=== PATIENT | male | born 1950 | race Caucasian/White ===

== ENCOUNTER 2016-12-20 05:26 | Emergency (ER) | payer OTHER, BC ==
[2016-12-20 05:36] VITALS: BP 164/96; PULSE 70; TEMP 97.5; BMI 31.1
--- NOTE | 2016-12-20 05:46 | PDOC ---
History of Present Illness - General Chief Complaint: Muscle Cramping Stated Complaint: CRAMPING/DIARRHEA Time Seen by Provider: 12/20/16 05:39 History Source: Patient Exam Limitations: No Limitations - History of Present Illness Initial Comments: 12/20/16 05:46 This is a 66-year-old male who comes in complaining of muscle cramps. Patient said that he was exercising yesterday exerting himself and has was sweating a lot patient said that he drank a lot of water to rehydrate himself but did not take any thing with electrolytes and the patient then said overnight he developed muscle cramps and pain in his muscles. Patient comes in this morning complaining of muscle cramps and pain. Patient denies any fever or chills. Patient denies any dark or tea-colored urine. Patient is otherwise healthy. PAST MEDICAL HISTORY: no significant history PAST SURGICAL HISTORY: no significant history FAMILY HISTORY: no pertinant history SOCIAL HISTORY: Pt lives with family and is employed. MEDICATIONS: reviewed ALLERGIES: As per nursing notes Review of Systems General: No fevers or chills, no weakness, no weight loss HEENT: No change in vision. No sore throat,. No ear pain CardioVascular: No chest pain or shortness of breath Respiratory:No cough, or wheezing. Gastrointestinal: no nausea, vomitting, diarrhea or constipation, No rectal bleeding Genitourinary: No dysuria, hematuria, or frequency Musculoskeletal: + muscle cramps Neurologic: No headache, vertigo, dizziness or loss of consciousness Psychiatric: nor depression Skin: No rashes or easy bruising Endocrine: no increased thirst or abnormal weight change Allergic: no skin or latex allergy All other systems reviewed and normal GENERAL: The patient is awake, alert, and fully oriented, in no acute distress. HEAD: Normal with no signs of trauma. EYES: Pupils equal, round and reactive to light, extraocular movements intact, sclera anicteric, conjunctiva clear. EXTREMITIES: Normal range of motion, no edema. There is no tenderness, redness, swelling or rash of the muscles or extremities NEUROLOGICAL: Normal speech, normal gait. PSYCH: Normal mood, normal affect. SKIN: Warm, Dry, normal turgor, no rashes or lesions noted. 12/20/16 06:59 Assessment and plan: This is a 66-year-old male who comes in complaining of muscle cramps of his extremities most likely secondary to exertion and dehydration. Patient is being hydrated with IV fluids with improvement of his symptoms. Patient's blood work is still pending at this time. Care of patient transferred to Dr. Estes. My transfer care note 12/20/16 07:00 Past History - Past Medical History Allergies/Adverse Reactions: Allergies Allergy/AdvReac Type Severity Reaction Status Date / Time ammonia Allergy Mild Verified 08/19/16 08:24 codeine Allergy Mild Verified 08/19/16 08:23 Home Medications: Ambulatory Orders Aspirin 81 mg PO DAILY 01/08/13 Sertraline HCl [Zoloft] 50 mg PO HS 01/08/13 Albuterol Sulfate [Proventil HFA Inhaler -] 1 - 2 inh PO PRN PRN 08/19/16 Multivitamin with Iron [Daily Chidi with Iron] 1 each PO DAILY 08/19/16 Ranitidine HCl [Zantac] 150 mg PO PRN PRN 08/19/16 Anemia: No Asthma: Yes (CHEMICAL INDUCED ASTHMA) Cancer: No Cardiac Disorders: No CVA: No COPD: No CHF: No Dementia: No Diabetes: No GI Disorders: Yes (GERD,DIVERTICULOSIS,IRRITABLE BOWEL) Disorders: No HTN: No Hypercholesterolemia: No Liver Disease: No Psychiatric Problems: Yes Seizures: No Thyroid Disease: No - Surgical History Abdominal Surgery: No Appendectomy: No Cardiac Surgery: No Cholecystectomy: No Lung Surgery: No Neurologic Surgery: No Orthopedic Surgery: Yes (ARTHROSCOPY BILATERAL KNEE-2013,2015,LEFT SHOULDER SURGERY) - Immunization History Td Vaccination: Yes Immunization Up to Date: Yes - Psycho/Social/Smoking Cessation Hx Anxiety: Yes Suicidal Ideation: No Smoking Status: No Smoking History: Former smoker Years of Tobacco Use: 0 Have you smoked in the past 12 months: No Number of Cigarettes Smoked Daily: 0 If you are a former smoker, when did you quit?: 40 YEARS AGO Information on smoking cessation initiated: No Hx Alcohol Use: No Drug/Substance Use Hx: No Substance Use Type: None Hx Substance Use Treatment: No *Physical Exam - Vital Signs Last Vital Signs Temp Pulse Resp BP Pulse Ox 97.5 F L 70 18 164/96 100 12/20/16 05:34 12/20/16 05:34 12/20/16 05:34 12/20/16 05:34 12/20/16 05:34 ED Treatment Course - LABORATORY CBC & Chemistry Diagram: 12/20/16 05:45 12/20/16 05:45 *DC/Admit/Observation/Transfer Diagnosis at time of Disposition: Muscle cramping - Discharge Dispostion Disposition: HOME Condition at time of disposition: Stable Admit: No - Referrals Referrals: Marino Kebede MD [Primary Care Provider] - - Patient Instructions Additional Instructions: Return to the emergency department immediately with ANY new, persistent or worsening symptoms. Continue any medications as previously prescribed by your physician. You should follow up with your primary doctor as soon as possible regarding today's emergency department visit. . Please make sure your doctor reviews the results of your emergency evaluation. Thank you for coming to the Emergency Department today for your care. It was a pleasure to see you today. Please note that your evaluation is INCOMPLETE until you follow-up with your doctor. Make sure you stay well-hydrated if you get dehydrated rehydrate herself with Gatorade, Powerade or Pedialyte
[2016-12-20] MEDS ORDERED: SODIUM CHLORIDE 1,000 ML IV ONE (05:59)
[2016-12-20 06:31] LABS: BASOPHIL 0.8 % (0-2.0); EOSINOPHIL 3.1 % (0-4.5); MCH 30.4 pg (25.7-33.7); MCHC 34.6 g/dl (32.0-35.9); NEUTROPHILS 65.7 % (42.8-82.8); PLATELET COUNT 281 K/MM3 (134-434); RDW 13.5 % (11.9-15.9); WHITE BLOOD COUNT 8.8 K/mm3 (4.0-10.0)
[2016-12-20 06:50] LABS: MAGNESIUM 1.9 mg/dL (1.8-2.4); PHOSPHOROUS 2.9 mg/dL (2.5-4.9)
[2016-12-20 06:52] LABS: ALBUMIN 3.7 g/dl (3.4-5.0); ANION GAP 9 (8-16); BILIRUBIN,TOTAL 0.4 mg/dL (0.2-1.0); CALCIUM 8.8 mg/dL (8.5-10.1); CO2 28 mmol/L (21-32); GLUCOSE,RANDOM 99 mg/dL (74-106); SGOT/AST 21 U/L (15-37); SGPT/ALT 30 U/L (12-78); TOT PROT 6.9 g/dl (6.4-8.2)
[2016-12-20 06:55] LABS: ALK PHOS 81 U/L (45-117); TROPONIN I < 0.02 ng/ml (0.00-0.05)
== END 2016-12-20 07:14 | disposition home or self-care (01) ==
LOC: FER 05:26
PROC: 3E0337Z Introduction of Electrolytic and Water Balance Substance into Peripheral Vein, Percutaneous Approach (ICD-10-PCS; principal; 2016-12-20)
DX: R25.2 Cramp and spasm (principal); Z87.891 Personal history of nicotine dependence; K21.9 Gastro-esophageal reflux disease without esophagitis; J45.909 Unspecified asthma, uncomplicated
CPT/HCPCS: 36415; 80053; 82550; 82553; 83735; 84100; 84484; 85025; 99283-25

== ENCOUNTER 2017-04-04 15:33 | Inpatient (IN) | payer OTHER, BC ==
[2017-04-04] MEDS ORDERED: NITROGLYCERIN SUBLINGUAL 1/150 0.4 MG TAB SL ONE (16:11)
[2017-04-04] MEDS ORDERED: PANTOPRAZOLE SODIUM 40 MG in SODIUM CHLORIDE 100 ML IVPB ONE (16:12)
--- NOTE | 2017-04-04 16:12 | PDOC ---
History of Present Illness - General History Source: Patient Exam Limitations: No Limitations - History of Present Illness Initial Comments: 04/04/17 17:02 The patient is a 66 year old male, with a significant past medical history of chemical induced asthma, GERD, diverticulosis, and irritable bowel syndrome, who presents to the emergency department with complains of abdominal pain, diarrhea, acid reflux, and headache. The patient reports that about a month ago he went to his urologist because of frequent urination throughout the night. He was given Rapaflo and then developed stomach pain and dysuria. He then tested positive for a UTI and had a cystoscopy and then developed an infection and was prescribed bactrim. The patient states that he was then told he had an E. coli infection and was given another medication which caused him to have diarrhea, wheezing, and palpitations. He reports that for the past 3 days his stomach has been killing him, he reports that his abdominal pain is a 8/10 in severity and describes it as a tightness in his epigastric region along with pressure in his chest cavity. He states he is also experiencing pain in his back that radiates up to his neck and painful acid reflux. The patient states that yesterday he had 5 episodes of diarrhea and today had 3 episodes. He denies any blood present in the stool. He denies chest pain, shortness of breath, and dizziness. He denies fever, chills, nausea, vomit, and constipation. He denies dysuria, frequency, urgency and hematuria. Allergies: ammonia, codeine Past surgical history: Bilateral Knee arthroscopy (2013), Left shoulder surgery (2016) Social history: Former smoker (quit 40 years ago) Family History: Mother of cancer and had diabetes, Father had bypass surgery twice PCP: Dr. Fang Kebede Urologist: Dr. Vitale <Jo Ann Sierra - Last Filed: 04/04/17 18:24> <Glen Olson - Last Filed: 04/04/17 19:01> - General Chief Complaint: Pain Stated Complaint: ACID REFLUX Time Seen by Provider: 04/04/17 15:37 Past History <Jo Ann Sierra - Last Filed: 04/04/17 18:24> - Past Medical History Anemia: No Asthma: Yes (CHEMICAL INDUCED ASTHMA) Cancer: No Cardiac Disorders: No CVA: No COPD: No CHF: No Dementia: No Diabetes: No GI Disorders: Yes (GERD,DIVERTICULOSIS,IRRITABLE BOWEL, HIATAL HERNIA) Disorders: Yes (H/O UTI) HTN: No Hypercholesterolemia: No Liver Disease: No Psychiatric Problems: Yes Seizures: No Thyroid Disease: No - Surgical History Abdominal Surgery: No Appendectomy: No Cardiac Surgery: No Cholecystectomy: No Lung Surgery: No Neurologic Surgery: No Orthopedic Surgery: Yes (ARTHROSCOPY BILATERAL KNEE-2013,2016,LEFT SHOULDER SURGERY) - Immunization History Td Vaccination: Yes Immunization Up to Date: Yes - Psycho/Social/Smoking Cessation Hx Anxiety: No Suicidal Ideation: No Smoking Status: No Smoking History: Former smoker Years of Tobacco Use: 0 Have you smoked in the past 12 months: No Number of Cigarettes Smoked Daily: 0 If you are a former smoker, when did you quit?: 40 YEARS AGO Information on smoking cessation initiated: No Hx Alcohol Use: No Drug/Substance Use Hx: No Substance Use Type: None Hx Substance Use Treatment: No <Glen Olson - Last Filed: 04/04/17 19:01> - Past Medical History Allergies/Adverse Reactions: Allergies Allergy/AdvReac Type Severity Reaction Status Date / Time ammonia Allergy Mild Verified 04/04/17 15:42 codeine Allergy Mild Verified 04/04/17 15:42 Home Medications: Ambulatory Orders Aspirin 81 mg PO DAILY 01/08/13 Glucosa Farrell 2Kcl/Chondroitin Farrell [Glucosamine & Chondroitin Cap] 1 each PO DAILY 04/04/17 Pantoprazole Sodium [Protonix -] 20 mg PO DAILY 04/04/17 Review of Systems - Review of Systems Able to Perform ROS?: Yes Comments:: 04/04/17 17:03 CONSTITUTIONAL: Absent: fever, chills, diaphoresis, generalized weakness, malaise, loss of appetite HEENT: Absent: rhinorrhea, nasal congestion, throat pain, throat swelling, difficulty swallowing, mouth swelling, ear pain, eye pain, visual Changes CARDIOVASCULAR: Absent: chest pain, syncope, palpitations, irregular heart rate, lightheadedness , peripheral edema RESPIRATORY: Absent: cough, shortness of breath, dyspnea with exertion, orthopnea, wheezing, stridor, hemoptysis GASTROINTESTINAL: +Abdominal pain, +Diarrhea, +Acid Reflux Absent: abdominal distension, nausea, vomiting, constipation, melena, hematochezia GENITOURINARY: Absent: dysuria, frequency, urgency, hesitancy, hematuria, flank pain, genital pain MUSCULOSKELETAL: +Back pain Absent: joint swelling SKIN: Absent: rash, itching, pallor HEMATOLOGIC/IMMUNOLOGIC: Absent: easy bleeding, easy bruising, lymphadenopathy, frequent infections ENDOCRINE: Absent: unexplained weight gain, unexplained weight loss, heat intolerance, cold intolerance NEUROLOGIC: +Headache Absent: focal weakness or paresthesias, dizziness, unsteady gait, seizure, mental status changes, bladder or bowel incontinence PSYCHIATRIC: Absent: anxiety, depression, suicidal or homicidal ideation, hallucinations. <Jo Ann Sierra - Last Filed: 04/04/17 18:24> *Physical Exam - Vital Signs Last Vital Signs Temp Pulse Resp BP Pulse Ox 98.4 F 92 H 18 159/98 97 04/04/17 15:33 04/04/17 15:33 04/04/17 15:33 04/04/17 15:33 04/04/17 15:33 - Physical Exam Comments: 04/04/17 17:03 GENERAL:+Somewhat obese male, cooperative Well developed, well nourished. Awake and alert. No acute distress. HEENT: Normocephalic, atraumatic. PERRLA, EOMI. No conjunctival pallor. Sclera are non- icteric. Moist mucous membranes. Oropharynx is clear. NECK: Supple. Full ROM. No JVD. Carotid pulses 2+ and symmetric, without bruits. No thyromegaly. No lymphadenopathy. CARDIOVASCULAR: S1 and S2 are distant but normal. Regular rate of 80 beats per minute Regular rate and rhythm. No murmurs, rubs, or gallops. Distal pulses are 2+ and symmetric. PULMONARY: No evidence of respiratory distress. Lungs clear to auscultation bilaterally. No wheezing, rales or rhonchi. ABDOMINAL: +Diffuse tenderness to palpation in the upper and lower quadrants, but most noticeably in the right upper quadrant with a positive [place] sign. Non-distended. No rebound or guarding. No organomegaly. Normoactive bowel sounds. MUSCULOSKELETAL Normal range of motion at all joints. No bony deformities or tenderness. No CVA tenderness. : No masses or tenderness, no urethral discharge. EXTREMITIES: No cyanosis. No clubbing. No edema. No calf tenderness or swelling SKIN: Warm and dry. Normal capillary refill. No rashes. No jaundice. RECTAL: stool was light brown in color and specimen was sent for stool guaiac specimen to lab NEUROLOGICAL: Alert, awake, appropriate. Cranial nerves 2-12 intact. No deficits to light touch and temperature in face, upper extremities and lower extremities. No motor deficits in the in face, upper extremities and lower extremities. Normoreflexic in the upper and lower extremities. Normal speech. Toes are down- going bilaterally. Gait is normal without ataxia. PSYCHIATRIC: Cooperative. Good eye contact. Appropriate mood and affect. <Jo Ann Sierra - Last Filed: 04/04/17 18:24> - Vital Signs Last Vital Signs Temp Pulse Resp BP Pulse Ox 98.4 F 92 H 18 159/98 97 04/04/17 15:33 04/04/17 15:33 04/04/17 15:33 04/04/17 15:33 04/04/17 15:33 <Glen Olson - Last Filed: 04/04/17 19:01> ED Treatment Course - LABORATORY CBC & Chemistry Diagram: 04/04/17 16:15 04/04/17 16:15 - Medications Given in the ED: ED Medications Discontinued Medications Generic Name Dose Route Start Last Admin Trade Name Freq PRN Reason Stop Dose Admin Pantoprazole Sodium 40 mg/ 100 mls @ 200 mls/hr 04/04/17 16:12 04/04/17 16:30 Sodium Chloride IVPB 04/04/17 16:41 200 mls/hr ONCE ONE Administration Nitroglycerin 0.4 mg 04/04/17 16:11 04/04/17 16:25 Nitrostat - SL 04/04/17 16:12 0.4 mg ONCE ONE Administration <Jo Ann Sierra - Last Filed: 04/04/17 18:24> - LABORATORY CBC & Chemistry Diagram: 04/04/17 16:15 04/04/17 16:15 <Glen Olson - Last Filed: 04/04/17 19:01> Medical Decision Making - Critical Care Time Total Critical Care Time (minutes): 45 Critical Care Statement: The care of this patient involved high complexity decision making to prevent further life threatening deterioration of the patient 's condition and/or to evalute & treat vital organ system(s) failure or risk of failure. <Jo Ann Sierra - Last Filed: 04/04/17 18:24> - Medical Decision Making 04/04/17 16:56 EKG reviewed: Normal sinus rhythm 81/m. Normal axes and intervals, borderline LVH, possibly a normal variant, Q waves are present in leads 3 and aVF, which were present in an old EKG obtained from October 2008. There were no new ST-T wave changes. There was no interval change to the EKG since 2008. No change in symptoms with nitroglycerin Minimal relief with intravenous Protonix and Pepcid Cardiac enzymes obtained. CK-MB and troponin are elevated, troponin is 3.9. Presumed myocardial ischemia/infarction. Aspirin is administered. Heparin, Plavix, and Lipitor begun. Landscape Engineer Dr. Phan contacted by phone. She recommends admission to the ICU, intravenous nitroglycerin until complete pain control is achieved. She will see patient tonight Dr. Crisostomo, ICU attending was contacted. He accepts patient to the ICU when a bed is available Dr. Tesfaye Stephens was contacted by phone. She is the patient's primary physician. However, she admits to the hospitalist The hospitalist was contacted and notified about the admission. Message was received that the hospitalist acknowledged awareness of the patient. 04/04/17 18:09 Rectal exam was performed and there was no blood or melena hasn't. Stool was light brown and sent for guaiac analysis. 04/04/17 18:35 Patient is hemodynamically stable and pain-free on 5 mcg/m of IV nitroglycerin. Awaiting transport to the ICU. On a heparin drip. By mouth medications or been administered. 04/04/17 19:01 <Glne Olson - Last Filed: 04/04/17 19:01> *DC/Admit/Observation/Transfer - Attestations Scribe Attestion: 04/04/17 17:03 Documentation prepared by KERLINE Reese, acting as medical lab assistant for Glen Olson MD. <Jo Ann Sierra - Last Filed: 04/04/17 18:24> - Discharge Dispostion Admit: Yes <Glen Olson - Last Filed: 04/04/17 19:01> Diagnosis at time of Disposition: Acute myocardial infarction Qualifiers: Myocardial infarction ST status: non-ST elevation myocardial infarction Qualified Code(s): I21.4 - Non-ST elevation (NSTEMI) myocardial infarction - Discharge Dispostion Condition at time of disposition: Stable
[2017-04-04] MEDS ORDERED: PANTOPRAZOLE SODIUM 40 MG VIAL ONE (16:22)
[2017-04-04] MEDS ORDERED: NITROGLYCERIN SUBLINGUAL 1/150 0.4 MG TAB ONE (16:22)
[2017-04-04 16:57] LABS: BASOPHIL 0.6 % (0-2.0); EOSINOPHIL 0.4 % (0-4.5); MCH 30.7 pg (25.7-33.7); MCHC 34.9 g/dl (32.0-35.9); MEAN CELL VOLUME 87.9 fl (80-96); MEAN PLT VOLUME 8.6 fl (7.5-11.1); NEUTROPHILS 78.3 % (42.8-82.8); PLATELET COUNT 263 K/MM3 (134-434); RDW 12.5 % (11.9-15.9); WHITE BLOOD COUNT 13.4 K/mm3 (4.0-10.8)
[2017-04-04] MEDS ORDERED: FAMOTIDINE 20 MG TABLET PO ONE (16:58)
[2017-04-04] MEDS ORDERED: FAMOTIDINE 20 MG/50 ML IVPB 50 ML IVPB ONE ×2 (16:59→17:00)
[2017-04-04 17:06] LABS: ALBUMIN 4.1 g/dl (3.5-5.0); ALK PHOS 58 U/L (32-92); ANION GAP 6 (8-16); BILIRUBIN,TOTAL 0.8 mg/dl (0.2-1.0); CALCIUM 9.5 mg/dl (8.4-10.2); CO2 29 mmol/L (22-28); CREATININE 1.1 mg/dl (0.6-1.3); GLUCOSE,RANDOM 96 mg/dl (74-106); SGOT/AST 43 U/L (10-42); SGPT/ALT 17 U/L (10-40); TOT PROT 6.7 g/dl (6.4-8.3)
[2017-04-04 17:30] LABS: TROPONIN I (DFP) 3.91 ng/ml (0.03-0.50)
[2017-04-04] MEDS ORDERED: ASPIRIN 81 MG CHEWABLE TABLETS PO ONE (17:36)
[2017-04-04] MEDS ORDERED: ASPIRIN 81 MG CHEWABLE TABLETS ONE (17:38)
[2017-04-04] MEDS ORDERED: HEPARIN NA (PORCINE) 5,000 UNITS/ML 1ML VIAL IVPUSH PRN ×3 (17:46→18:06)
[2017-04-04] MEDS ORDERED: NITROGLYCERIN 50 MG/10 ML VIAL IVPB SCH (18:00)
[2017-04-04] MEDS ORDERED: HEPARIN NA (PORCINE) 5,000 UNITS/ML 1ML VIAL ONE (18:03)
[2017-04-04] MEDS ORDERED: CLOPIDOGREL BISULFATE 300 MG TABLET PO ONE (18:05)
[2017-04-04] MEDS ORDERED: ATORVASTATIN CA 80 MG TABLET (FP) PO ONE (18:05)
[2017-04-04] MEDS ORDERED: HEPARIN INFUSION - 500 ML IVPB SCH (18:15)
[2017-04-04] MEDS ORDERED: ATORVASTATIN CA 80 MG TABLET (FP) ONE (18:17)
[2017-04-04] MEDS ORDERED: CLOPIDOGREL BISULFATE 300 MG TABLET ONE (18:18)
[2017-04-04 19:43] LABS: PH,URINE 7.5 (4.5-8); URINE APPEARANCE Clear; URINE BILIRUBIN Negative (NEGATIVE); URINE BLOOD Trace-lysed (NEGATIVE); URINE COLOR YELLOW; URINE GLUCOSE (UA) Negative (NEGATIVE); URINE KETONE Negative (NEGATIVE); URINE LEUK ESTERASE Trace (NEGATIVE); URINE NITRITE Negative (NEGATIVE); URINE PROTEIN Negative (NEGATIVE); URINE UROBILINOGEN 0.2 E.U/dl (0.2-1.0)
--- NOTE | 2017-04-04 20:34 | PN ---
Teaching Attending Note Name of Resident: Mili Smiley ATTENDING PHYSICIAN STATEMENT I saw and evaluated the patient. I reviewed the resident's note and discussed the case with the resident. I agree with the resident's findings and plan as documented. SUBJECTIVE: 66 yo M with pmhx. of asthma, GERDm diverticulosis, and IBS who presents with abdominal pain and diarrhea. Notes for past three days he has had 8/10 abdominal pain. States abdominal pain radiated to his chest and right arm and then radiated up to his neck. No current chest pain, pressure or shortness of breath. OBJECTIVE: Physical: VS: Vital Signs Period Temp Pulse Resp BP Sys/Gonzalez Pulse Ox Last 24 Hr 98.1 F-98.6 F 68-92 15-20 118-159/64-98 97-99 GEN: NAD, Resting in bed HEENT: NCAT, PERRL, Throat without erythema or exudates CARD: RRR S1, S2 RESP: CTAB ABD: BSX4, Non-tender to palpation EXT: - C/C/E CBCD WBC 13.4 K/mm3 (4.0-10.8) H 04/04/17 16:15 RBC 5.02 M/mm3 (4.00-5.60) 04/04/17 16:15 Hgb 15.4 GM/dl (11.7-16.9) 04/04/17 16:15 Hct 44.1 % (35.4-49) 04/04/17 16:15 MCV 87.9 fl (80-96) 04/04/17 16:15 MCHC 34.9 g/dl (32.0-35.9) 04/04/17 16:15 RDW 12.5 % (11.9-15.9) 04/04/17 16:15 Plt Count 263 K/MM3 (134-434) 04/04/17 16:15 MPV 8.6 fl (7.5-11.1) 04/04/17 16:15 CMP Sodium 136 mmol/L (136-145) 04/04/17 16:15 Potassium 4.0 mmol/L (3.5-5.1) 04/04/17 16:15 Chloride 101 mmol/L (98-107) 04/04/17 16:15 Carbon Dioxide 29 mmol/L (22-28) H D 04/04/17 16:15 Anion Gap 6 (8-16) L 04/04/17 16:15 BUN 16 mg/dl (7-18) D 04/04/17 16:15 Creatinine 1.1 mg/dl (0.6-1.3) 04/04/17 16:15 Creat Clearance w eGFR > 60 (>60) 04/04/17 16:15 Random Glucose 96 mg/dl (74-106) D 04/04/17 16:15 Calcium 9.5 mg/dl (8.4-10.2) 04/04/17 16:15 Total Bilirubin 0.8 mg/dl (0.2-1.0) 04/04/17 16:15 AST 43 U/L (10-42) H D 04/04/17 16:15 ALT 17 U/L (10-40) D 04/04/17 16:15 Alkaline Phosphatase 58 U/L (32-92) 04/04/17 16:15 Total Protein 6.7 g/dl (6.4-8.3) 04/04/17 16:15 Albumin 4.1 g/dl (3.5-5.0) 04/04/17 16:15 CARDIAC ENZYMES Creatine Kinase 386 IU/L (38-174) H 04/04/17 16:15 Troponin I 3.91 ng/ml (0.03-0.50) H* D 04/04/17 16:15 ASSESSMENT AND PLAN: 66 yo M with pmhx of asthma and GERD who presents with abdominal pain radiating to his chest, found to have a NSTEMI 1.) NSTEMI - HEP gtt. - ASA, Plavix, BB, Nitro, 02 2L NC - Echo - EKG/Trop- Trend - Chk. Lipid panel/HgbA1c - Statin - Cardio- Consult - Npo, Chk coags, type and screen 2.) Asthma - Controlled - Neb Prn 3.) GERD - Protonix 4.) DVt Ppx - On Heparin gtt Rest as per resident note Place in ICU CC time 40 minutes
[2017-04-04 20:36] VITALS: BMI 31.2
--- NOTE | 2017-04-04 20:39 | HP ---
HISTORY OF PRESENT ILLNESS: Patient is a 66 year old male with a PMHx of GERD, Diverticulosis, IBS, who presented for epigastric abdominal pain with a squeezing/tight sensation that radiates to the jaw and back that suddenly started today. Patient does report a history of abdominal pain and irritation but states this pain felt different, which prompted this hospital visit. Patient states a recent UTI one month ago and was given Bactrim and another antibiotic that he forgot the name of, which caused him to have diarrhea and increasing abdominal pain. Otherwise, patient denies hematuria, dizziness, loss of consciousness, acute vision changes. HOME MEDICATIONS: Home Medications Medication Instructions Recorded Aspirin 81 mg PO DAILY 01/08/13 Glucosa Farrell 2Kcl/Chondroitin Farrell 1 each PO DAILY 04/04/17 [Glucosamine & Chondroitin Cap] Pantoprazole Sodium [Protonix -] 20 mg PO DAILY 04/04/17 PHYSICAL EXAMINATION Vital Signs - 24 hr 04/04/17 20:27 Temperature 98.6 F Pulse Rate 68 Respiratory 15 Rate Blood Pressure 123/73 O2 Sat by Pulse 99 Oximetry (%) GENERAL: Awake, alert, and fully oriented, in no acute distress. HEAD: Normal with no signs of trauma. EYES: Sclera anicteric, conjunctiva clear. EARS, NOSE, THROAT: Oropharynx clear without exudates. Moist mucous membranes. NECK: Normal range of motion, supple without lymphadenopathy, JVD, or masses. LUNGS: Breath sounds equal, clear to auscultation bilaterally. No wheezes, and no crackles. No accessory muscle use. HEART: Regular rate and rhythm, normal S1 and S2 without murmur, rub or gallop. ABDOMEN: Soft, nontender, not distended, normoactive bowel sounds, no guarding, no rebound, no masses. LOWER EXTREMITIES: 2+ pulses, warm, well-perfused. No calf tenderness. No peripheral edema. Abnormal Lab Results 04/04/17 04/04/17 04/04/17 16:15 16:15 16:15 WBC 13.4 H Carbon Dioxide 29 H D Anion Gap 6 L AST 43 H D Creatine Kinase 386 H CK-MB (CK-2) Rel Index 13.9 H* Troponin I 3.91 H* D ASSESSMENT/PLAN: Patient is a 66 year old male with a PMHx of Asthma, GERD, IBS, and diverticulosis who presented for epigastric abdominal pain radiating to the chest, jaw, and back. Patient was found to have elevated troponins and abnormal EKG findings. Patient admitted to ICU for further monitoring and management. NSTEMI -Troponing >3.0. Repeat Troponin pending -EKG revealed Q waves in inferior leads -Heparin Drip started -Loading dose plavix 600mg given in ED and will continue 75mg daily -Loading Dose ASA 162 given in ED and will resume 81mg daily -Atorvastatin 80mg given in ED and will continue same dosage -Metoprolol 25mg daily started, as per Cardiology -Nitroglycerin drip for pain control -Trend Troponins Q6H with EKG -ECHO, Lipid profile, A1C ordered -Type and Screen/Coagulations -Cardiology consult placed GERD/IBS -Protonix 40mg IVPB daily Asthma -Controlled -Reports reaction only to chemicals -Nebulizers as needed Prophylaxis -Heparin drip for DVT Discussed with medical team and attending. Full HPI note to follow from Construction Safety Manager CC time 40 minutes Visit type - Emergency Visit Emergency Visit: Yes ED Registration Date: 04/04/17 Care time: The patient presented to the Emergency Department on the above date and was hospitalized for further evaluation of their emergent condition. - New Patient This patient is new to me today: Yes Date on this admission: 04/04/17 - Critical Care Critical Care patient: Yes Total Critical Care Time (in minutes): 45 Critical Care Statement: The care of this patient involved high complexity decision making to prevent further life threatening deterioration of the patient 's condition and/or to evalute & treat vital organ system(s) failure or risk of failure.
[2017-04-04] MEDS ORDERED: METOPROLOL SUCCINATE 25 MG TAB.SR.24H (FP) PO SCH (21:00)
--- NOTE | 2017-04-04 21:13 | CONSULT ---
Consult Consult Specialty:: Critical care Reason for Consultation:: Chest pain - History of Present Illness Chief Complaint: Chest pain History of Present Illness: This is a 66 yo man with a pmhx of GERD, irritable bowel syndrome, severe migraines, recent E.Coli UTI s/p antibiotics who presented to the ED c/o progressive chest pain, back pain, abdominal pain and bloating, acid reflux, and diarrhea. Recently saw a Urologist for dysuria and frequency, underwent a cystoscopy and was treated with Rapaflo. Urine +E.Coli UTI (initially treated with Bactrim and then switched to something else for better coverage when cxl returned) c/b significant diarrhea and bloating. GI symptoms worsened significantly over the past 3-4 days and he developed new chest and back pain leading to his decision to go to the ED. In the ED VS stable and he was afebrile. Labs mainly unremarkable except for elevated troponin of 3.9 and slightly elevated WBC of 13. EKG without ST changes. He was started on a Heparin gtt, Aspirin, Plavix, and Nitroglycerin. Transferred to ICU for close monitoring. Patient reports dysuria has improved. His chest and back pain have improved. Mental status is at baseline. - Alcohol/Substance Use Hx Alcohol Use: No - Smoking History Smoking history: Former smoker Have you smoked in the past 12 months: No Aproximately how many cigarettes per day: 0 If you are a former smoker, when did you quit?: 40 YEARS AGO Home Medications - Allergies Allergies/Adverse Reactions: Allergies Allergy/AdvReac Type Severity Reaction Status Date / Time ammonia Allergy Mild Verified 04/04/17 15:42 codeine Allergy Mild Verified 04/04/17 15:42 - Home Medications Home Medications: Ambulatory Orders Aspirin 81 mg PO DAILY 01/08/13 Glucosa Farrell 2Kcl/Chondroitin Farrell [Glucosamine & Chondroitin Cap] 1 each PO DAILY 04/04/17 Pantoprazole Sodium [Protonix -] 20 mg PO DAILY 04/04/17 Family Disease History - Family Disease History Family Disease History: Heart Disease: Father, Other: Mother ("blood cancer") Review of Systems - Review of Systems Constitutional: reports: No Symptoms Eyes: reports: No Symptoms HENT: reports: No Symptoms Neck: reports: No Symptoms Cardiovascular: reports: Chest Pain Respiratory: reports: SOB on Exertion Gastrointestinal: reports: Abdominal Pain, Bloating, Diarrhea Genitourinary: reports: Dysuria Neurological: reports: No Symptoms Endocrine: reports: No Symptoms Hematology/Lymphatic: reports: No Symptoms Psychiatric: reports: No Symptoms Physical Exam Vital Signs: Vital Signs Temperature 98.6 F 04/04/17 20:27 Pulse Rate 76 04/04/17 20:40 Respiratory Rate 17 04/04/17 20:40 Blood Pressure 123/73 04/04/17 20:27 O2 Sat by Pulse Oximetry (%) 99 04/04/17 20:44 Constitutional: Yes: Well Nourished Eyes: Yes: WNL HENT: Yes: WNL Neck: Yes: WNL Cardiovascular: Yes: Regular Rate and Rhythm Respiratory: Yes: WNL Gastrointestinal: Yes: Soft, Abdomen, Obese, Distention ...Rectal Exam: Yes: Deferred Renal/: Yes: WNL Musculoskeletal: Yes: Back Pain Extremities: Yes: WNL Peripheral Pulses WNL: Yes Integumentary: Yes: WNL Assessment/Plan This is a 66 year old man with pmhx of GERD, severe migraines, recent UTI who presented to the ED with progressive GI complaints, chest, and back pain found to have a troponin of 3.9, concerning for NSTEMI. -O2 supplementation via NC -Heparin gtt target full therapeutic anticoagulation -Nitroglycerin gtt -Plavix -Aspirin -Metoprolol -Trend troponins -EKG -TTE -Consult cardiology -Aspiration precautions
--- NOTE | 2017-04-04 21:36 | HP ---
CHIEF COMPLAINT: Abdominal pain radiating to his nech, right shoulder and his back. PCP: HISTORY OF PRESENT ILLNESS: A 66 YO white male with H/o GERD, diverticulosis, IBS , migrain headache,who presented to the ED today with 2 days history of epigastric abdominal pain that radiate to the neck, right shoulder and his back. pain is 8/10 , not related to his position. today patient was not able to do his daily sports because of this symptoms. Patient denies any fever, chills,SOB, N/V but reports some palpitation on rest and dry couph . for the last month patient has a H/O of UTI(Ecoli) that was treated with bactrim and then Nitrofurantoin that cause him abdominal distension, worsen Acid reflux and stomach ache. yesterday patient has 5 episodes of non bloody diarrhea. last July he had a colonoscopy and found to have some polyps and he was directed to use more vegetable, mirlax 3 x/ week and PPI. He denies dysuria, frequency, urgency and hematuria. ER course was notable for: (1)EKG: Sinus rhytm on 81/m, Q waves are present in leads 3 and aVF, which were present in an old EKG obtained from October 2008. There were no new ST-T wave changes. (2)Cardiac enzymes obtained. CK-MB and troponin are elevated, troponin is 3.9. Presumed myocardial ischemia/infarction. (3)Aspirin is administered. Heparin, Plavix, and Lipitor begun. Recent Travel:NO PAST MEDICAL HISTORY:Chemical indused asthma, GERD, IBS,Diverticulitis,migrain headache treated with botox.post nasal drip. PAST SURGICAL HISTORY: Right inguinal hernia, tonsillectomy,left and right knee meniscus, left shoulder and left elbow surgery. Social History: Smoking:none Alcohol:none Drugs: none Family History: Allergies ammonia Allergy (Mild, Verified 04/04/17 15:42) codeine Allergy (Mild, Verified 04/04/17 15:42) NAUSEA AND VOMITING HOME MEDICATIONS: Home Medications Medication Instructions Recorded Aspirin 81 mg PO DAILY 01/08/13 Glucosa Farrell 2Kcl/Chondroitin Farrell 1 each PO DAILY 04/04/17 [Glucosamine & Chondroitin Cap] Pantoprazole Sodium [Protonix -] 20 mg PO DAILY 04/04/17 REVIEW OF SYSTEMS CONSTITUTIONAL: Absent: fever, chills, diaphoresis, generalized weakness, malaise, loss of appetite, weight change HEENT: Absent: rhinorrhea, nasal congestion, throat pain, throat swelling, difficulty swallowing, mouth swelling, ear pain, eye pain, visual changes CARDIOVASCULAR: Absent: chest pain, syncope, palpitations, irregular heart rate, lightheadedness , peripheral edema RESPIRATORY: Absent: + dry cough for the last month, shortness of breath, dyspnea with exertion, orthopnea, wheezing, stridor, hemoptysis GASTROINTESTINAL: Absent:+ RUQ abdominal pain, abdominal distension, nausea, vomiting, diarrhea last 2 days, constipation, melena, hematochezia GENITOURINARY: Absent: dysuria, frequency, urgency, hesitancy, hematuria, flank pain, genital pain MUSCULOSKELETAL: Absent: myalgia, arthralgia, joint swelling,+ back pain,+ neck pain SKIN: Absent: rash, itching, pallor HEMATOLOGIC/IMMUNOLOGIC: Absent: easy bleeding, easy bruising, lymphadenopathy, frequent infections ENDOCRINE: Absent: unexplained weight gain, unexplained weight loss, heat intolerance, cold intolerance NEUROLOGIC: Absent: headache, focal weakness or paresthesias, dizziness, seizure, mental status changes, bladder or bowel incontinence PSYCHIATRIC: Absent: anxiety, depression, suicidal or homicidal ideation, hallucinations. PHYSICAL EXAMINATION Vital Signs - 24 hr 04/04/17 04/04/17 04/04/17 20:27 20:40 20:44 Temperature 98.6 F Pulse Rate 68 76 Respiratory 15 17 Rate Blood Pressure 123/73 O2 Sat by Pulse 99 99 Oximetry (%) GENERAL: Awake, alert, and fully oriented, in no acute distress. HEAD: Normal with no signs of trauma. EYES: Pupils equal, round and reactive to light, extraocular movements intact, sclera anicteric, conjunctiva clear. No lid lag. EARS, NOSE, THROAT: Ears normal, nares patent,. Moist mucous membranes. NECK: Normal range of motion, supple without lymphadenopathy, JVD, or masses. LUNGS: Breath sounds equal, clear to auscultation bilaterally. No wheezes, and no crackles. No accessory muscle use. HEART: Regular rate and rhythm, normal S1 and S2 without murmur, rub or gallop. ABDOMEN: Soft, RUQ tenderness, not distended, normoactive bowel sounds, no guarding, no rebound, no masses. No hepatomegaly or splenomegaly. MUSCULOSKELETAL: limited ELLIOT in left Elbow. No bony deformities or tenderness. No CVA tenderness. UPPER EXTREMITIES: 2+ pulses, warm, well-perfused. No cyanosis. No clubbing. No peripheral edema. LOWER EXTREMITIES: 2+ pulses, warm, well-perfused. No calf tenderness. No peripheral edema. NEUROLOGICAL: Cranial nerves II-XII intact. Normal speech. PSYCHIATRIC: Cooperative. Good eye contact. Appropriate mood and affect. SKIN: Warm, dry, normal turgor, no rashes or lesions noted, normal capillary refill. CBC, BMP 04/04/17 16:15 04/04/17 16:15 Troponin, BNP 04/04/17 04/04/17 16:15 21:50 Troponin I 3.91 H* D 11.40 H* D Hepatic Panel Total Bilirubin 0.8 mg/dl (0.2-1.0) 04/04/17 16:15 AST 43 U/L (10-42) H D 04/04/17 16:15 ALT 17 U/L (10-40) D 04/04/17 16:15 Alkaline Phosphatase 58 U/L (32-92) 04/04/17 16:15 Albumin 4.1 g/dl (3.5-5.0) 04/04/17 16:15 ASSESSMENT/PLAN: A 66 YO white male with H/o GERD, diverticulosis, IBS , migrain headache,who presented to the ED today with 2 days history of epigastric abdominal pain that radiate to the neck, right shoulder and his back.in Ed he found to have Cardiac enzyme elevated possible NSTEMI. 1- NSTEMI: * Heart score of 5 and Dereje score of 3 * EKG:Sinus rhytm on 81/m, Q waves are present in leads 3 and aVF, which were present in an old EKG obtained from October 2008. There were no new ST-T wave changes. * Troponin I- 3.91, TropII -11.40 will f/U trop III * CK-MB -44.395 * ASA 162mg IV was started in ED , will continue with ASA 81 mg daily * Plavix 300 mg was started in ED , will continue Plavix 75 mg IV daily. * IV Nitroglycirine drip * Hep drip started * Atorvastatin 80 mg IV was given in ED, will continue same dose. * O2 ,2 L NC * Metoprolol 25 mg IV * Repeat EKG with next troponin * Cardiac ECHO * monitor tech * Cardiology consultation was placed * Bed rest * Vitals Q 2H * NPO * Type and screen w coagulations * Lipid paned was ordered * HgA1c * * * 2- GERD: chronic * Protonix 40 mg IV BID * raise the head of [facility] bed 45 degree * Avoid fatty and fried food * 3- IBS , chronic : * Continue previous treatment vegetables, Fibers, Mirlax 3 times/ week and protonix 40 mg BID * 4- Migrain headach: chronic * On botox injection Q 3 months * tylenol PRN for headache. * * 5- Dispo: * Pt was admitted to the ICU * NPO * * 6- Asthma : * controlled, symptoms only with chemicals use. * Neb as needed 7-Prophylaxis * Heparin drip for DVT 8- F/E/N * IV NS 0.9 % * Electrolytes WNL * NPO Visit type - Emergency Visit Emergency Visit: Yes ED Registration Date: 04/04/17 Care time: The patient presented to the Emergency Department on the above date and was hospitalized for further evaluation of their emergent condition. - New Patient This patient is new to me today: Yes Date on this admission: 04/06/17 - Critical Care Critical Care patient: Yes Total Critical Care Time (in minutes): 35 Critical Care Statement: The care of this patient involved high complexity decision making to prevent further life threatening deterioration of the patient 's condition and/or to evalute & treat vital organ system(s) failure or risk of failure.
[2017-04-04] MEDS ORDERED: ATORVASTATIN CA 80 MG TABLET (FP) PO SCH (22:00)
[2017-04-04] MEDS ORDERED: SODIUM CHLORIDE 1,000 ML IV SCH (22:15)
[2017-04-04 22:34] LABS: TROPONIN I 11.4 ng/ml (0.00-0.05)
[2017-04-05 05:36] LABS: BASOPHIL 0.6 % (0-2.0); EOSINOPHIL 1.9 % (0-4.5); MCH 30.5 pg (25.7-33.7); MCHC 34.7 g/dl (32.0-35.9); MEAN CELL VOLUME 87.9 fl (80-96); MEAN PLT VOLUME 8.1 fl (7.5-11.1); NEUTROPHILS 69.2 % (42.8-82.8); PLATELET COUNT 212 K/MM3 (134-434); RDW 13.5 % (11.9-15.9); WHITE BLOOD COUNT 10.4 K/mm3 (4.0-10.0)
[2017-04-05 05:50] LABS: INR 1.14 (0.82-1.09); PROTHROMBIN TIME (PATIENT) 12.6 SEC (9.98-11.88)
[2017-04-05 05:52] LABS: ACTIVATED PTT 41.4 SECONDS (26.9-34.4)
[2017-04-05 07:24] LABS: MAGNESIUM 2.3 mg/dL (1.8-2.4)
[2017-04-05 07:36] LABS: THYROID STIMULATING HORMONE 1.83 uIU/ml (0.358-3.74)
[2017-04-05 07:42] LABS: ALBUMIN 3.4 g/dl (3.4-5.0); ANION GAP 10 (8-16); BILIRUBIN,TOTAL 0.8 mg/dL (0.2-1.0); CO2 28 mmol/L (21-32); GLUCOSE,RANDOM 90 mg/dL (74-106); SGOT/AST 79 U/L (15-37); SGPT/ALT 23 U/L (12-78); TOT PROT 6.1 g/dl (6.4-8.2)
[2017-04-05 07:56] LABS: ALK PHOS 66 U/L (45-117)
[2017-04-05] MEDS ORDERED: HEPARIN NA (PORCINE) 5,000 UNITS/ML 1ML VIAL IVPUSH PRN ×2 (08:39→08:40)
[2017-04-05] MEDS ORDERED: HEPARIN INFUSION - 500 ML IVPB SCH (08:45)
[2017-04-05] MEDS ORDERED: SODIUM CHLORIDE 1,000 ML IV SCH (08:45)
--- NOTE | 2017-04-05 08:55 | CON.CARD ---
Consult Consult Specialty:: cardio Referred by:: gwen Reason for Consultation:: NSTEMI - History of Present Illness Chief Complaint: abd pain History of Present Illness: 66 year old male presented with abdominal pain, diarrhea, acid reflux, and headache. stomach pain began about 1 month prior, after starting new rx for urinary frequency (Rapaflo). was subsequently rx'd bactrim for positive urine culture. The patient states that he was then told he had an E. coli infection and was given another medication which caused him to have diarrhea, wheezing, and palpitations. for 3 days prior to admission he developed intense stomach pain (8/10 in severity), a sensation of tightness in his epigastric region. notes associated pressure in his chest cavity with this epigastric pain--the chest pressure began 2-3d ago. different than prior IBS or GERD sx's b/c would not go away including when he drank fluids or ate something, lasted for hours. 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 in ER, troponin was elevated at 3.9. started on UFH and nitro gtt and pain resolved with nitro remains without cp PMH: "chemical induced asthma", c-spine dz GERD, diverticulosis, irritable bowel syndrome HPL--intolerant lipitor in past (legs weak) (no HTN, DM) +FH: father CABG twice (50s-60s). mother cardiac arrest in 70s, s/p ICD, ? 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 Pulmonary: Yes: Asthma Gastrointestinal: Yes: Diverticulosis, GERD, Irritable Bowel Disease Renal/: Yes: UTI - Past Surgical History Past Surgical History: Yes: None - Alcohol/Substance Use Hx Alcohol Use: No History of Substance Use: reports: None - Smoking History Smoking history: Former smoker Have you smoked in the past 12 months: No Aproximately how many cigarettes per day: 0 If you are a former smoker, when did you quit?: 40 YEARS AGO - Social History Usual Living Arrangement: With Spouse Home Medications - Allergies Allergies/Adverse Reactions: Allergies Allergy/AdvReac Type Severity Reaction Status Date / Time ammonia Allergy Mild Verified 04/04/17 15:42 codeine Allergy Mild Verified 04/04/17 15:42 - Home Medications Home Medications: Ambulatory Orders Aspirin 81 mg PO DAILY 01/08/13 Glucosa Farrell 2Kcl/Chondroitin Farrell [Glucosamine & Chondroitin Cap] 1 each PO DAILY 04/04/17 Pantoprazole Sodium [Protonix -] 20 mg PO DAILY 04/04/17 Family Disease History - Family Disease History Family Disease History: Heart Disease: Father, Other: Mother ("blood cancer") Review of Systems - Review of Systems Constitutional: denies: Chills, Fever Eyes: denies: Eye Pain HENT: denies: Nasal Congestion Neck: denies: Stiffness Cardiovascular: denies: Palpitations Respiratory: denies: Orthopnea, PND Gastrointestinal: denies: Diarrhea, Rectal Bleeding Genitourinary: denies: Burning, Hematuria Musculoskeletal: denies: Muscle Pain Integumentary: denies: Rash Neurological: denies: Numbness, Seizure, Syncope Endocrine: denies: Excessive Sweating Hematology/Lymphatic: denies: Excessive Bleeding Vital Signs: Vital Signs Temperature 98.3 F 04/05/17 06:00 Pulse Rate 68 04/05/17 07:25 Respiratory Rate 15 04/05/17 07:25 Blood Pressure 118/80 04/05/17 07:25 O2 Sat by Pulse Oximetry (%) 99 04/05/17 07:27 Constitutional: Yes: Well Nourished, No Distress Eyes: No: Sclera Icterus HENT: No: Nasal Congestion Neck: No: Decreased ROM Respiratory: Yes: CTA Bilaterally. No: Accessory Muscle Use, Rales, Wheezes Gastrointestinal: Yes: Normal Bowel Sounds. No: Distention, Hepatomegaly, Palpable Mass, Tenderness Cardiovascular: Yes: Regular Rate and Rhythm JVD: No Carotid Bruit: No PMI: Non-Displaced Heart Sounds: Yes: S1, S2. No: Gallop Murmur: No: Systolic Murmur, Diastolic Murmur Musculoskeletal: Yes: Other (No kyphosis) Extremities: No: Cold, Cyanosis Edema: No Peripheral Pulses: 2+ Left Carotid, 2+ Right Carotid, 2+ Left Doralis Pedis, 2+ Right Dorsalis Pedis Integumentary: No: Jaundice Neurological: Yes: Alert, Oriented (x3) Psychiatric: No: Agitated - Other Data Labs, Other Data: CBC, BMP 04/05/17 05:05 04/05/17 05:05 INR, PTT INR 1.14 (0.82-1.09) 04/05/17 05:05 Troponin, BNP 04/04/17 21:50 Troponin I 11.40 H* D Troponin, BNP 04/04/17 21:50 Troponin I 11.40 H* D Laboratory Tests 04/04/17 04/04/17 04/05/17 16:15 21:50 05:05 WBC 10.4 H Hgb 14.5 Plt Count 212 D Sodium Potassium Carbon Dioxide BUN Creatinine Hemoglobin A1c % Troponin I 3.91 H* D 11.40 H* D Total LDL Cholesterol HDL Cholesterol Lipase 04/05/17 04/05/17 04/05/17 05:05 05:05 06:00 WBC Hgb Plt Count Sodium 142 Potassium 3.9 Carbon Dioxide 28 BUN 14 D Creatinine 1.0 Hemoglobin A1c % 5.4 Troponin I Total LDL Cholesterol HDL Cholesterol Lipase 63 L 04/05/17 06:00 WBC Hgb Plt Count Sodium Potassium Carbon Dioxide BUN Creatinine Hemoglobin A1c % Troponin I Total LDL Cholesterol 121 H HDL Cholesterol 43 Lipase ekg #1 (04/04/17, 16:14:51--NSR, normal axis/interv; no ST-T. inferior q's--vs 08/05 no sig change (inferior q waves old) ekg 2 (04/04 at 22:42:28: NSR, PVCs, otherwise no change tele: NSR with 3b and 5b runs NSVT; brief SVT Assessment/Plan CXR: clear lungs/pleura EKG x2: NSR, q waves inferior unchanged vs , no ST-Ts NSTEMI: -PA sx's obscured by pt's intense anxiety and multiple somatic complaints referable to his abdomen--suspect IBS component with frequent diarrhea -likely the more recent sx of chest pressure (and ? back/neck pain that felt like his GERD) was ACS sx -given the initially elevated troponin which rised further (and appears to be peaking this am), suspect his PA occurred yesterday, though cannot precisely pinpoint acute sx's of the event -cp free overnight on nitro gtt, remains without cp this am -clinically stable, no signs chf or low output -cont ASA, plavix (s/p 600mg loading dose), UFH gtt, metoprolol, atorva 80 -echo for LV fxn -cath scheduled today ([facility]) V Tach: -NSVT on tele -K/Mag good--replete to usual targets -BB as doing HPL: -known hx, intolerant of atorva in past (leg weakness) -LDL 121 here but spuriously lowered by acute PA -cont atorva 80 for now given ACS--doubt will tolerate this as outpt GI pain, diarrhea: - ? all due to IBS - sx's stable this am - WBC 13-->10, normal temp curve = ? wbc's sec to PA est crit care time in pt mgmt = 37 min
[2017-04-05 09:24] LABS: TROPONIN I 11.56 ng/ml (0.00-0.05)
[2017-04-05] MEDS ORDERED: MUPIROCIN 2% TOPICAL OINTMENT FOR DECOLONIZATION NS SCH ×2 (10:00)
[2017-04-05] MEDS ORDERED: CLOPIDOGREL BISULFATE 75 MG TABLET (FP) PO SCH ×2 (10:00)
[2017-04-05] MEDS ORDERED: PANTOPRAZOLE SODIUM 100 ML IVPB SCH ×2 (10:00)
[2017-04-05] MEDS ORDERED: METOPROLOL TARTRATE 25 MG TABLET (FP) PO SCH (10:00)
[2017-04-05] MEDS ORDERED: ASPIRIN COATED 81 MG TABLET.EC PO SCH ×2 (10:00)
[2017-04-05] MEDS ORDERED: ASPIRIN 81 MG CHEWABLE TABLETS PO SCH (10:00)
[2017-04-05] MEDS ORDERED: METOPROLOL SUCCINATE 25 MG TAB.SR.24H (FP) PO SCH (10:00)
[2017-04-05 10:32] VITALS: TEMP 98.8
--- NOTE | 2017-04-05 10:32 | EKG ---
Test Reason : Blood Pressure : / mmHG Vent. Rate : 073 BPM Atrial Rate : 073 BPM P-R Int : 154 ms QRS Dur : 076 ms QT Int : 386 ms P-R-T Axes : 012 -16 025 degrees QTc Int : 425 ms SINUS RHYTHM WITH FREQUENT PREMATURE VENTRICULAR COMPLEXES INFERIOR INFARCT (CITED ON OR BEFORE 04-APR-2017) ABNORMAL ECG WHEN COMPARED WITH ECG OF 04-APR-2017 16:14, PREMATURE VENTRICULAR COMPLEXES ARE NOW PRESENT Confirmed by KJ BLANTON MD ([id number]) on 04/05/2017 10:31:44 AM Referred By: Confirmed By:KJ BLANTON MD
[2017-04-05] MEDS ORDERED: POTASSIUM CHLORIDE TABS 20 MEQ TABLET.ER (FP) PO ONE (10:34)
--- NOTE | 2017-04-05 11:51 | PN ---
Teaching Attending Note Name of Resident: Jose Kahn ATTENDING PHYSICIAN STATEMENT I saw and evaluated the patient. I reviewed the resident's note and discussed the case with the resident. I agree with the resident's findings and plan as documented. SUBJECTIVE: Pt seen and examined in the ICU. No further chest pain. On nitro gtt. Troponins this AM 11.56 OBJECTIVE: Last Vital Signs Temp Pulse Resp BP Pulse Ox 98.8 F 68 18 119/68 95 04/05/17 10:00 04/05/17 10:00 04/05/17 10:00 04/05/17 10:00 04/05/17 09:53 Intake & Output 04/02/17 04/03/17 04/04/17 04/05/17 23:59 23:59 23:59 23:59 Intake Total 178.8 844.5 Output Total 300 1100 Balance -121.2 -255.5 Weight 205 lb 6.4 oz 205 lb 4 oz Gen: NAD at rest Heart: RRR, nl S1 S2 Lung: clear to auscultation Abd: soft, nontender Ext: no edema CBC, BMP 04/05/17 05:05 04/05/17 05:05 Active Medications Aspirin (Ecotrin -) 81 mg PO DAILY [facility] Last Admin: 04/05/17 09:08 Dose: 81 mg Atorvastatin Calcium (Lipitor -) 80 mg PO HS [facility] Chlorhexidine Gluconate (Hibiclens For Decolonization -) 1 applic TP HS [facility] Clopidogrel Bisulfate (Plavix -) 75 mg PO DAILY [facility] Last Admin: 04/05/17 09:08 Dose: 75 mg Heparin Sodium (Porcine) (Heparin -) 1,000 unit IVPUSH PRN PRN PRN Reason: Heparin Heparin Sodium (Porcine) (Heparin -) 5,000 unit IVPUSH PRN PRN PRN Reason: Heparin Heparin Sodium/Dextrose (Heparin Infusion -) 500 mls @ 20 mls/hr IVPB TITR VIRI ; 1,000 UNITS/HR PRN Reason: Protocol Last Admin: 04/05/17 09:54 Dose: Not Given Pantoprazole Sodium (Protonix 40mg Ivpb (Pre-Docked)) 100 mls @ 200 mls/hr IVPB DAILY [facility] Last Admin: 04/05/17 09:08 Dose: 200 mls/hr Metoprolol Tartrate (Lopressor -) 25 mg PO BID [facility] Last Admin: 04/05/17 09:55 Dose: Not Given Mupirocin (Bactroban Ointment (For Decolonization) -) 1 applic NS BID [facility] Stop: 04/10/17 09:59 Last Admin: 04/05/17 09:55 Dose: Not Given Nitroglycerin (Tridil Injection -) 5 mcg IVPB TITR [facility] Last Admin: 04/04/17 18:14 Dose: 5 mcg ASSESSMENT AND PLAN: Acute NSTEMI Hyperlipidemia - ASA, plavix - beta zulema, statin - heparin gtt - nitro PRN - trend cardiac enzymes to document peak - echocardiogram - will need cardiac catheterization
--- NOTE | 2017-04-05 12:11 | PN ---
Physical Exam: SUBJECTIVE: Patient seen and examined at bedside in ICU. Pt is a 66 y/o M w/PMH of IBS, GERD, diverticulitis, asthma who presented to [facility] for abdominal pain radiating up chest and into jaw. Pt states it felt like his usual GERD symptoms in nature but was the worst in severity he had ever felt which had prompted him to come to the ER. 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 He denied any N/V/F/C, diaphoresis, light-headedness, dizziness, chest pressure. He currently feels much better and no longer c/o pain in the abdomen, chest, or jaw. OBJECTIVE: Vital Signs Temperature 98.8 F 04/05/17 10:00 Pulse Rate 68 04/05/17 10:00 Respiratory Rate 18 04/05/17 10:00 Blood Pressure 119/68 04/05/17 10:00 O2 Sat by Pulse Oximetry (%) 95 04/05/17 09:53 GENERAL: The patient is awake, alert, and fully oriented, in no acute distress. HEAD: Normal with no signs of trauma. EYES: extraocular movements intact, sclera anicteric, conjunctiva clear. No ptosis. NECK: Trachea midline, full range of motion, supple. LUNGS: Breath sounds equal, clear to auscultation bilaterally, no wheezes, no crackles, no accessory muscle use. HEART: Regular rate and rhythm, S1, S2 without murmur, rub or gallop. ABDOMEN: Soft, mild TTP in LLQ and RLQ, nondistended, normoactive bowel sounds, no guarding, no rebound, no hepatosplenomegaly, no masses. EXTREMITIES: 2+ pulses, warm, well-perfused, no edema. NEUROLOGICAL: Normal speech, gait not observed. PSYCH: Normal mood, normal affect. SKIN: Warm, dry, normal turgor, no rashes or lesions noted Laboratory Results - last 24 hr 04/04/17 04/04/17 04/05/17 21:50 21:50 00:00 WBC RBC Hgb Hct MCV MCH MCHC RDW Plt Count MPV Neutrophils % Lymphocytes % Monocytes % Eosinophils % Basophils % INR PTT (Actin FS) 112.2 H Sodium Potassium Chloride Carbon Dioxide Anion Gap BUN Creatinine Creat Clearance w eGFR Random Glucose Hemoglobin A1c % Calcium Magnesium Total Bilirubin AST ALT Alkaline Phosphatase Creatine Kinase 498 H D Creatine Kinase Index 8.9 H* CK-MB (CK-2) 44.398 H Troponin I 11.40 H* D Total Protein Albumin Triglycerides Cholesterol Total LDL Cholesterol HDL Cholesterol Lipase TSH Stool Occult Blood Negative 04/05/17 04/05/17 04/05/17 05:05 05:05 05:05 WBC 10.4 H RBC 4.75 Hgb 14.5 Hct 41.7 MCV 87.9 MCH 30.5 MCHC 34.7 RDW 13.5 Plt Count 212 D MPV 8.1 Neutrophils % 69.2 Lymphocytes % 18.4 Monocytes % 9.9 Eosinophils % 1.9 Basophils % 0.6 INR 1.14 PTT (Actin FS) 41.4 H D Sodium 142 Potassium 3.9 Chloride 104 Carbon Dioxide 28 Anion Gap 10 BUN 14 D Creatinine 1.0 Creat Clearance w eGFR > 60 Random Glucose 90 Hemoglobin A1c % Calcium 9.0 Magnesium Total Bilirubin 0.8 D AST 79 H D ALT 23 D Alkaline Phosphatase 66 Creatine Kinase 461 H Creatine Kinase Index CK-MB (CK-2) Troponin I 11.56 H* Total Protein 6.1 L Albumin 3.4 Triglycerides Cholesterol Total LDL Cholesterol HDL Cholesterol Lipase TSH Stool Occult Blood 04/05/17 04/05/17 04/05/17 05:05 06:00 06:00 WBC RBC Hgb Hct MCV MCH MCHC RDW Plt Count MPV Neutrophils % Lymphocytes % Monocytes % Eosinophils % Basophils % INR PTT (Actin FS) Sodium Potassium Chloride Carbon Dioxide Anion Gap BUN Creatinine Creat Clearance w eGFR Random Glucose Hemoglobin A1c % 5.4 Calcium Magnesium 2.3 D Total Bilirubin AST ALT Alkaline Phosphatase Creatine Kinase Creatine Kinase Index CK-MB (CK-2) Troponin I Total Protein Albumin Triglycerides 157 Cholesterol 180 Total LDL Cholesterol 121 H HDL Cholesterol 43 Lipase 63 L TSH 1.83 Stool Occult Blood EKG: NSR, no ST segment changes noted Active Medications Generic Name Dose Route Start Last Admin Trade Name Freq PRN Reason Stop Dose Admin Aspirin 81 mg 04/05/17 10:00 04/05/17 09:08 Ecotrin - PO 81 mg DAILY VIRI Administration Atorvastatin Calcium 80 mg 04/05/17 22:00 Lipitor - PO HS [facility] Chlorhexidine Gluconate 1 applic 04/05/17 22:00 Hibiclens For Decolonization - TP [facility] Clopidogrel Bisulfate 75 mg 04/05/17 10:00 04/05/17 09:08 Plavix - PO 75 mg DAILY VIRI Administration Heparin Sodium (Porcine) 1,000 unit 04/05/17 08:39 Heparin - IVPUSH PRN PRN Heparin Heparin Sodium (Porcine) 5,000 unit 04/05/17 08:40 Heparin - IVPUSH PRN PRN Heparin Heparin Sodium/Dextrose 500 mls @ 20 mls/hr 04/05/17 08:45 04/05/17 09:54 Heparin Infusion - IVPB Not Given TITR [facility] Protocol 1,000 UNITS/HR Pantoprazole Sodium 100 mls @ 200 mls/hr 04/05/17 10:00 04/05/17 09:08 Protonix 40mg Ivpb (Pre-Docked) IVPB 200 mls/hr DAILY VIRI Administration Metoprolol Tartrate 25 mg 04/05/17 10:00 04/05/17 09:55 Lopressor - PO Not Given BID VIRI Mupirocin 1 applic 04/05/17 10:00 04/05/17 09:55 Bactroban Ointment (For Decolonization) - NS 04/10/17 09:59 Not Given BID VIRI Nitroglycerin 5 mcg 04/04/17 18:00 04/04/17 18:14 Tridil Injection - IVPB 5 mcg TITR VIRI Administration ASSESSMENT/PLAN: 66 y/o M w/PMH of IBS, GERD, diverticulitis, asthma who is admitted for NSTEMI. Cardio -NSTEMI -Trops: 3.91 --> 11.4 --> 11.56, continue to trend until peaked -given ASA and plavix in ER -c/w nitro drip, heparin drip -c/w ASA 81 mg po qd, plavix 75 mg po qd, lopressor 25 mg po bid, atorvastatin 80 mg po qhs -f/u ECHO -pt to have cath at [facility] today -Cardiology on board GI -GERD -protonix 40 mg iv qd Prophylaxis -DVT ppx -on heparin drip FEN -no fluids at this time -Monitor electrolytes, replete as needed -NPO Dispo -to be transferred to [facility] for cardiac cath today Problem List - Problems (1) Acute myocardial infarction Code(s): I21.3 - ST ELEVATION (STEMI) MYOCARDIAL INFARCTION OF [facility] SITE Qualifiers: Myocardial infarction ST status: non-ST elevation myocardial infarction Qualified Code(s): I21.4 - Non-ST elevation (NSTEMI) myocardial infarction (2) NSTEMI (non-ST elevated myocardial infarction) Code(s): I21.4 - NON-ST ELEVATION (NSTEMI) MYOCARDIAL INFARCTION (3) GERD (gastroesophageal reflux disease) Code(s): K21.9 - GASTRO-ESOPHAGEAL REFLUX DISEASE WITHOUT ESOPHAGITIS Visit type - Emergency Visit Emergency Visit: Yes ED Registration Date: 04/04/17 Care time: The patient presented to the Emergency Department on the above date and was hospitalized for further evaluation of their emergent condition. - New Patient This patient is new to me today: Yes Date on this admission: 04/05/17 - Critical Care Critical Care patient: Yes Total Critical Care Time (in minutes): 40 Critical Care Statement: The care of this patient involved high complexity decision making to prevent further life threatening deterioration of the patient 's condition and/or to evalute & treat vital organ system(s) failure or risk of failure.
[2017-04-05 12:12] VITALS: BP 104/63; PULSE 64
--- NOTE | 2017-04-05 16:50 | DS ---
Physical Exam: SUBJECTIVE: Patient seen and examined Patient was seen by me at the bed side. 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 Patient stated feeling improved today in comparison to previous days. Patient's neck pain has reduced from 10/10 yesterday to a 5/10 today. The patient complains only of pressure in the suprapubic region with decreased urinary flow. The patient denies any associated urinary pain or burning. The patient states that he had three bought of non painful watery diarrhea over night and a constant non radiating headache. The patient denies any additional chest pain, SOB, nausea, vomiting, numbness tingling, fever or chills. OBJECTIVE: Vital Signs Period Temp Pulse Resp BP Sys/Gonzalez Pulse Ox Last 24 Hr 98.3 F-98.8 F 60-76 11-22 100-135/52-80 95-99 PHYSICAL EXAM GENERAL: The patient is awake, alert, and fully oriented, in no acute distress. HEAD: Normal with no signs of trauma. EYES: PERRL, extraocular movements intact, sclera anicteric, conjunctiva clear. NECK: Trachea midline, full range of motion, supple. LUNGS: Breath sounds equal, clear to auscultation bilaterally, no wheezes, no crackles, no accessory muscle use. HEART: Regular rate and rhythm, S1, S2 without murmur, rub or gallop. ABDOMEN: Soft, moderate tenderness in the lower right and left quadrant, nondistended, normoactive bowel sounds, no guarding, no rebound, no hepatosplenomegaly, no masses. EXTREMITIES: 2+ pulses, warm, well-perfused, no edema. NEUROLOGICAL: Cranial nerves II through XII grossly intact. Normal speech, gait not observed. PSYCH: Depressed and anxious. SKIN: Warm, dry, normal turgor, no rashes or lesions noted. LABS Laboratory Results - last 24 hr 04/04/17 04/04/17 04/05/17 21:50 21:50 00:00 WBC RBC Hgb Hct MCV MCH MCHC RDW Plt Count MPV Neutrophils % Lymphocytes % Monocytes % Eosinophils % Basophils % INR PTT (Actin FS) 112.2 H Sodium Potassium Chloride Carbon Dioxide Anion Gap BUN Creatinine Creat Clearance w eGFR Random Glucose Hemoglobin A1c % Calcium Magnesium Total Bilirubin AST ALT Alkaline Phosphatase Creatine Kinase 498 H D Creatine Kinase Index 8.9 H* CK-MB (CK-2) 44.398 H Troponin I 11.40 H* D Total Protein Albumin Triglycerides Cholesterol Total LDL Cholesterol HDL Cholesterol Lipase TSH Stool Occult Blood Negative 04/05/17 04/05/17 04/05/17 05:05 05:05 05:05 WBC 10.4 H RBC 4.75 Hgb 14.5 Hct 41.7 MCV 87.9 MCH 30.5 MCHC 34.7 RDW 13.5 Plt Count 212 D MPV 8.1 Neutrophils % 69.2 Lymphocytes % 18.4 Monocytes % 9.9 Eosinophils % 1.9 Basophils % 0.6 INR 1.14 PTT (Actin FS) 41.4 H D Sodium 142 Potassium 3.9 Chloride 104 Carbon Dioxide 28 Anion Gap 10 BUN 14 D Creatinine 1.0 Creat Clearance w eGFR > 60 Random Glucose 90 Hemoglobin A1c % Calcium 9.0 Magnesium Total Bilirubin 0.8 D AST 79 H D ALT 23 D Alkaline Phosphatase 66 Creatine Kinase 461 H Creatine Kinase Index CK-MB (CK-2) Troponin I 11.56 H* Total Protein 6.1 L Albumin 3.4 Triglycerides Cholesterol Total LDL Cholesterol HDL Cholesterol Lipase TSH Stool Occult Blood 04/05/17 04/05/17 04/05/17 05:05 06:00 06:00 WBC RBC Hgb Hct MCV MCH MCHC RDW Plt Count MPV Neutrophils % Lymphocytes % Monocytes % Eosinophils % Basophils % INR PTT (Actin FS) Sodium Potassium Chloride Carbon Dioxide Anion Gap BUN Creatinine Creat Clearance w eGFR Random Glucose Hemoglobin A1c % 5.4 Calcium Magnesium 2.3 D Total Bilirubin AST ALT Alkaline Phosphatase Creatine Kinase Creatine Kinase Index CK-MB (CK-2) Troponin I Total Protein Albumin Triglycerides 157 Cholesterol 180 Total LDL Cholesterol 121 H HDL Cholesterol 43 Lipase 63 L TSH 1.83 Stool Occult Blood EKG: showed sinus rhythm with premature ventricular complexes and evidence of old infarct in inferior leads. HOSPITAL COURSE: Date of Admission:04/04/17 Date of Discharge: 04/05/17 Patient is a 66 year old male with PMHX of IBS, GERD, diverticlitis, and asthma who was admitted for NSTEMI. 1) NSTEMI - Patient presented to the ER after 1 week of GERD symptoms secondary to UTI treatment with Bactrim followed by Nitrofurantoin. Patients Symptoms began to include extreme Neck Pain and abdominal distention. Patient was found to have Troponins elevated at 3.91, then 11.4, then 11.56, without notable ST segment elavations. Diagnosis of NSTEMI was made. - Patient was given Aspirin 162 mg PO once, Plavix 600 mg PO once, lipitor 80mg PO once, and nitroglycerin 5mcg IVPB once in the ER. - patient received a chest x-ray and RUQ Ultrasound that were both negative - Patient was admitted to the ICU, placed on telemetry continued on nitroglycerin drip, heparin drip, aspirin 81 mg PO, plavix 75 mg PO qd, lopressor 25 mg PO BID, and Atorvastin 80 mg PO qhs while in the ICU - consultation was placed to Dr. River - Patient was transferred to [facility] for cardiac catheterization. 2) Gastrointestinal reflux - Patient was continued on protonix 40mg IV QD Minutes to complete discharge: 50 Discharge Summary Reason For Visit: ACID REFLUX Condition: Stable - Instructions Diet, Activity, Other Instructions: You are being transferred to [facility] for a procedure called Cardiac Catheterization. When you came into our hospital, we found that your heart is not getting enough blood supply. This procedure allows doctors to visualize all of the arteries leading to your heart to see if there is a blockage. They will also treat blockages with stents. Please come back to the Emergency room if you experience any serious symptoms ( severe chest pain) Please followup with your Primary Care Doctor and Support Associate Referrals: Yunior River MD [Staff Physician] - Disposition: TRANSFER ACUTE CARE/OTHER HOSP - Home Medications Comprehensive Discharge Medication List: Ambulatory Orders Aspirin 81 mg PO DAILY 01/08/13 Glucosa Farrell 2Kcl/Chondroitin Farrell [Glucosamine & Chondroitin Cap] 1 each PO DAILY 04/04/17 Pantoprazole Sodium [Protonix -] 20 mg PO DAILY 04/04/17 Atorvastatin Ca [Lipitor] 80 mg PO HS #30 tab 04/05/17 Mupirocin Ointment [Bactroban Ointment (For Decolonization) -] 1 applic NS BID applic 04/05/17 This patient is new to me today: No Emergency Visit: No Critical Care patient: No - Discharge Referral Referred to [facility] Med P.C.: No
--- NOTE | 2017-04-05 17:05 | PN ---
Teaching Attending Note Name of Resident: Nemo Giraldo ATTENDING PHYSICIAN STATEMENT I saw and evaluated the patient. I reviewed the resident's note and discussed the case with the resident. I agree with the resident's findings and plan as documented. SUBJECTIVE: Patient is going for Catheterization ,seen by , arranged Tx. OBJECTIVE: Vital Signs Temperature 98.8 F 04/05/17 10:00 Pulse Rate 64 04/05/17 12:00 Respiratory Rate 22 04/05/17 12:00 Blood Pressure 104/63 04/05/17 12:00 O2 Sat by Pulse Oximetry (%) 95 04/05/17 09:53 CBCD WBC 10.4 K/mm3 (4.0-10.0) H 04/05/17 05:05 RBC 4.75 M/mm3 (4.00-5.60) 04/05/17 05:05 Hgb 14.5 GM/dL (11.7-16.9) 04/05/17 05:05 Hct 41.7 % (35.4-49) 04/05/17 05:05 MCV 87.9 fl (80-96) 04/05/17 05:05 MCHC 34.7 g/dl (32.0-35.9) 04/05/17 05:05 RDW 13.5 % (11.9-15.9) 04/05/17 05:05 Plt Count 212 K/MM3 (134-434) D 04/05/17 05:05 MPV 8.1 fl (7.5-11.1) 04/05/17 05:05 CMP Sodium 142 mmol/L (136-145) 04/05/17 05:05 Potassium 3.9 mmol/L (3.5-5.1) 04/05/17 05:05 Chloride 104 mmol/L (98-107) 04/05/17 05:05 Carbon Dioxide 28 mmol/L (21-32) 04/05/17 05:05 Anion Gap 10 (8-16) 04/05/17 05:05 BUN 14 mg/dL (7-18) D 04/05/17 05:05 Creatinine 1.0 mg/dL (0.7-1.3) 04/05/17 05:05 Creat Clearance w eGFR > 60 (>60) 04/05/17 05:05 Random Glucose 90 mg/dL (74-106) 04/05/17 05:05 Calcium 9.0 mg/dL (8.5-10.1) 04/05/17 05:05 Total Bilirubin 0.8 mg/dL (0.2-1.0) D 04/05/17 05:05 AST 79 U/L (15-37) H D 04/05/17 05:05 ALT 23 U/L (12-78) D 04/05/17 05:05 Alkaline Phosphatase 66 U/L (45-117) 04/05/17 05:05 Total Protein 6.1 g/dl (6.4-8.2) L 04/05/17 05:05 Albumin 3.4 g/dl (3.4-5.0) 04/05/17 05:05 CARDIAC ENZYMES Creatine Kinase 461 IU/L (39-308) H 04/05/17 05:05 Troponin I 11.56 ng/ml (0.00-0.05) H* 04/05/17 05:05 Home Medications Medication Instructions Recorded Aspirin 81 mg PO DAILY 01/08/13 Glucosa Farrell 2Kcl/Chondroitin Farrell 1 each PO DAILY 04/04/17 [Glucosamine & Chondroitin Cap] Pantoprazole Sodium [Protonix -] 20 mg PO DAILY 04/04/17 Atorvastatin Ca [Lipitor] 80 mg PO HS #30 tab 04/05/17 Mupirocin Ointment [Bactroban 1 applic NS BID applic 04/05/17 Ointment (For Decolonization) -] PE: as per resident's note EKG: showed sinus rhythm with premature ventricular complexes and evidence of old infarct in inferior leads. Date of Admission:04/04/17 Date of Discharge: 04/05/17 ASSESSMENT AND PLAN: Patient is a 66 year old male with PMHX of IBS, GERD, diverticlitis, and asthma who was admitted for NSTEMI. #NSTEMI seen By gum cook , [facility] # Gastrointestinal reflux continue protonix 40mg Discharge to [facility] for further w/u.
--- NOTE | 2017-04-05 18:21 | EKG ---
Test Reason : Blood Pressure : / mmHG Vent. Rate : 081 BPM Atrial Rate : 081 BPM P-R Int : 146 ms QRS Dur : 078 ms QT Int : 382 ms P-R-T Axes : 016 -20 020 degrees QTc Int : 443 ms NORMAL SINUS RHYTHM MINIMAL VOLTAGE CRITERIA FOR LVH, MAY BE NORMAL VARIANT INFERIOR INFARCT , AGE UNDETERMINED WHEN COMPARED WITH ECG OF 07-NOV-2008 08:47, NO SIGNIFICANT CHANGE WAS FOUND Confirmed by MD WILMAR, GAGE ([id number]) on 04/05/2017 6:21:01 PM Referred By: PHILLIP HOPPER Confirmed By:GAGE URBAN MD
[2017-04-05] MEDS ORDERED: CHLORHEXIDINE GLUCONATE 4% CLEANSER FOR DECOLONIZATION TP SCH ×2 (22:00)
[2017-04-05] MEDS ORDERED: ATORVASTATIN CA 80 MG TABLET (FP) PO SCH (22:00)
== END 2017-04-05 12:33 | disposition short-term general hospital (02) | DRG 281 ==
LOC: SUPCPDRO 15:33 → FER 15:33 → JICU 20:08
PROVIDERS: ADMIT Internal Medicine; ATTEND Internal Medicine
PROC: 3E033GC Introduction of Other Therapeutic Substance into Peripheral Vein, Percutaneous Approach (ICD-10-PCS; principal; 2017-04-04)
PROC: 3E0F7GC Introduction of Other Therapeutic Substance into Respiratory Tract, Via Natural or Artificial Opening (ICD-10-PCS; 2017-04-04)
DX: I21.4 Non-ST elevation (NSTEMI) myocardial infarction (principal); I47.1 Supraventricular tachycardia; K21.9 Gastro-esophageal reflux disease without esophagitis; K57.90 Diverticulosis of intestine, part unspecified, without perforation or abscess without bleeding; J45.998 Other asthma; G43.909 Migraine, unspecified, not intractable, without status migrainosus; K58.0 Irritable bowel syndrome with diarrhea; F41.1 Generalized anxiety disorder
CPT/HCPCS: 36415; 71010-TC; 76705-TC; 80048; 80053; 80061; 81003; 82272; 82550; 82553; 83036; 83690; 83721; 83735; 84443; 84484; 85025; 85610; 85730; 93005; 93010; 93306-TC; 99285-25; J1644

== ENCOUNTER 2021-11-29 11:42 | Inpatient (IN) | payer OTHER, BC ==
[2021-11-29 13:19] LABS: BASO % 0.4 % (0-2.0); EOS % 0.4 % (0-4.5); HEMATOCRIT 44.5 % (35.4-49); HEMOGLOBIN 15.6 GM/dL (11.7-16.9); LYMPH % 11.8 % (8-40); MCHC 34.9 g/dl (32.0-35.9); MEAN CELL VOLUME 88.7 fl (80-96); MEAN PLT VOLUME 7.6 fl (7.5-11.1); MONO % 7.2 % (3.8-10.2); NEUT % 80.2 % (42.8-82.8); PLATELET COUNT 286 10^3/uL (134-434); RBC 5.02 M/mm3 (4.00-5.60); RDW 13.1 % (11.9-15.9); WHITE BLOOD COUNT 10.4 K/mm3 (4.0-10.0)
[2021-11-29 13:31] LABS: INR 1.14 (0.83-1.09); PROTHROMBIN TIME (PATIENT) 13.1 SEC (9.7-13.0)
[2021-11-29 13:34] LABS: ACTIVATED PTT 30.8 SECONDS (25.2-36.5)
[2021-11-29 13:54] LABS: ALBUMIN 3.7 g/dl (3.4-5.0); BLOOD UREA NITROGEN 20.7 mg/dL (7-18); CALCIUM 9.4 mg/dL (8.5-10.1)
[2021-11-29 13:57] LABS: CREATININE 1.1 mg/dL (0.55-1.3)
[2021-11-29 13:59] LABS: BILIRUBIN,TOTAL 0.5 mg/dL (0.2-1); TOT PROT 6.9 g/dl (6.4-8.2)
[2021-11-29 23:05] VITALS: BMI 33.8
[2021-11-30 07:27] LABS: BASO % 0.8 % (0-2.0); EOS % 2.5 % (0-4.5); HEMATOCRIT 43.4 % (35.4-49); HEMOGLOBIN 15.5 GM/dL (11.7-16.9); LYMPH % 19.9 % (8-40); MCH 31.6 pg (25.7-33.7); MCHC 35.8 g/dl (32.0-35.9); MEAN CELL VOLUME 88.2 fl (80-96); MEAN PLT VOLUME 7.7 fl (7.5-11.1); MONO % 8.6 % (3.8-10.2); NEUT % 68.2 % (42.8-82.8); PLATELET COUNT 248 10^3/uL (134-434); RBC 4.92 M/mm3 (4.00-5.60); RDW 13.4 % (11.9-15.9); WHITE BLOOD COUNT 7.7 K/mm3 (4.0-10.0)
[2021-11-30 08:10] LABS: ALBUMIN 3.5 g/dl (3.4-5.0); BLOOD UREA NITROGEN 25.4 mg/dL (7-18); CALCIUM 9.2 mg/dL (8.5-10.1)
[2021-11-30 08:13] LABS: CREATININE 1.1 mg/dL (0.55-1.3)
[2021-11-30 08:15] LABS: BILIRUBIN,TOTAL 0.5 mg/dL (0.2-1); TOT PROT 6.4 g/dl (6.4-8.2)
[2021-11-30] MEDS: ASPIRIN 81 MG CHEWABLE TABLETS PO SCH (09:07)
[2021-11-30] MEDS ORDERED: ACETAMINOPHEN 325 MG TABLET (FP) PO PRN (14:08)
[2021-11-30] MEDS: metoPROLOL SUCCINATE 25 MG TAB.SR.24H (FP) PO SCH (15:00)
[2021-11-30 19:11] LABS: SARS-CoV-2 NAA Not Detected (Not Detected)
[2021-12-01] MEDS ORDERED: SERTRALINE HCL 50 MG TABLET (FP) PO SCH (10:00)
[2021-12-01] MEDS ORDERED: REGADENOSON 0.4 MG/5 ML PRE-FILLED SYRINGE IVPUSH ONE ×2 (10:10→10:45)
[2021-12-01] MEDS: ASPIRIN 81 MG CHEWABLE TABLETS PO SCH (14:12)
[2021-12-01] MEDS: metoPROLOL SUCCINATE 25 MG TAB.SR.24H (FP) PO SCH (14:12)
[2021-12-01 14:18] VITALS: BP 131/80; PULSE 63; TEMP 97.9
== END 2021-12-01 18:00 | disposition home or self-care (01) | DRG 303 ==
LOC: JER 11:42 → JERBED 14:10 → OBSVTOIN 14:10 → J4W 21:35
DX: I25.10 Atherosclerotic heart disease of native coronary artery without angina pectoris (principal); I47.1 Supraventricular tachycardia; E78.5 Hyperlipidemia, unspecified; Z98.61 Coronary angioplasty status; K21.9 Gastro-esophageal reflux disease without esophagitis; R00.2 Palpitations
CPT/HCPCS: 36415; 71045-TC-FY; 78452-TC; 80053; 84484; 85025; 85610; 85730; 93005; 93010; 93017; 93306-TC; 99285-25; A9502; C9803; J2785; U0003; U0005

== ENCOUNTER 2024-11-16 06:31 | Inpatient (IN) | payer OTHER, BC ==
[2024-11-16 06:47] VITALS: BMI 26.4
[2024-11-16 07:54] LABS: BASO % 0.3 % (0-2.0); EOS % 1.3 % (0-4.5); HEMOGLOBIN 18.4 GM/dL (11.7-16.9); LYMPH % 18.2 % (8-40); MCH 30.4 pg (25.7-33.7); MCHC 34.1 g/dl (32.0-35.9); MONO % 6.6 % (3.8-10.2); NEUT % 73.6 % (42.8-82.8); PLATELET COUNT 407 10^3/uL (134-434); RBC 6.07 M/mm3 (4.00-5.60); RDW 13.8 % (11.9-15.9); WHITE BLOOD COUNT 11.4 K/mm3 (4.0-10.0)
[2024-11-16] MEDS ORDERED: ACETAMINOPHEN INJECTION 100 ML ONE (08:01)
[2024-11-16] MEDS ORDERED: FAMOTIDINE 20 MG/50 ML IVPB 20 MG/50 ML MG IVPB ONE (08:03)
[2024-11-16] MEDS: ACETAMINOPHEN 1000 MG/100 ML BAG IVPB ONE (08:13)
[2024-11-16] MEDS: FAMOTIDINE 20 MG/50 ML IVPB 20 MG/50 ML MG IVPB ONE (08:14)
[2024-11-16 08:20] LABS: CALCIUM 9.9 mg/dL (8.5-10.1)
[2024-11-16 08:21] LABS: ALBUMIN 3.6 g/dl (3.4-5.0); BLOOD UREA NITROGEN 20.8 mg/dL (7-18)
[2024-11-16 08:24] LABS: CREATININE 1.2 mg/dL (0.55-1.3)
[2024-11-16 08:26] LABS: BILIRUBIN,TOTAL 0.8 mg/dL (0.2-1); TOT PROT 7.2 g/dl (6.4-8.2)
[2024-11-16 08:29] LABS: N-TERMINAL BNP 2028.2 pg/ml (5-450); PHOSPHOROUS 3.3 mg/dL (2.5-4.9)
[2024-11-16] MEDS: SODIUM CHLORIDE 1,000 ML IV STA (08:57)
[2024-11-16] MEDS ORDERED: METOPROLOL TARTRATE 5 MG/5 ML VIAL ONE (09:59)
[2024-11-16] MEDS: METOPROLOL TARTRATE 5 MG/5 ML VIAL IVPUSH ONE (10:15)
[2024-11-16] MEDS: METOPROLOL TARTRATE 25 MG TABLET (FP) PO ONE (11:47)
[2024-11-16] MEDS: APIXABAN 5 MG TABLET PO SCH (12:15)
[2024-11-16] MEDS: CLOPIDOGREL BISULFATE 75 MG TABLET (FP) PO SCH (12:25)
[2024-11-16] MEDS: ASPIRIN COATED 81 MG TABLET.EC PO SCH (12:25)
[2024-11-16] MEDS: RAMIPRIL 5 MG CAPSULE PO SCH (12:25)
[2024-11-16] MEDS ORDERED: CLOPIDOGREL BISULFATE 75 MG TABLET (FP) ONE (12:51)
[2024-11-16] MEDS ORDERED: APIXABAN 5 MG TABLET ONE (12:51)
[2024-11-16] MEDS ORDERED: ASPIRIN COATED 81 MG TABLET.EC ONE (12:51)
[2024-11-16] MEDS ORDERED: RAMIPRIL 5 MG CAPSULE ONE (12:51)
[2024-11-16] MEDS ORDERED: FUROSEMIDE 40 MG/4 ML INJECTABLE VIAL ONE (19:48)
[2024-11-16] MEDS: FUROSEMIDE 40 MG/4 ML INJECTABLE VIAL IVPUSH ONE (19:54)
[2024-11-17] MEDS: ACETAMINOPHEN 1000 MG/100 ML BAG IVPB ONE (01:33)
[2024-11-17] MEDS: ONDANSETRON 4 MG/2 ML VIAL IVPUSH ONE (05:24)
[2024-11-17 08:17] LABS: HEMATOCRIT 51.1 % (35.4-49); HEMOGLOBIN 17.6 GM/dL (11.7-16.9); MCH 30.7 pg (25.7-33.7); MCHC 34.5 g/dl (32.0-35.9); MEAN CELL VOLUME 89.1 fl (80-96); MEAN PLT VOLUME 7.6 fl (7.5-11.1); PLATELET COUNT 335 10^3/uL (134-434); RBC 5.73 M/mm3 (4.00-5.60); RDW 13.6 % (11.9-15.9); WHITE BLOOD COUNT 11.3 K/mm3 (4.0-10.0)
[2024-11-17 08:38] LABS: POTASSIUM 4.4 mmol/L (3.5-5.1)
[2024-11-17 08:42] LABS: CALCIUM 9.5 mg/dL (8.5-10.1)
[2024-11-17 08:43] LABS: ALBUMIN 3.5 g/dl (3.4-5.0); BLOOD UREA NITROGEN 29.9 mg/dL (7-18); MAGNESIUM 2.2 mg/dL (1.8-2.4)
[2024-11-17 08:46] LABS: CREATININE 1.2 mg/dL (0.55-1.3); PHOSPHOROUS 3.4 mg/dL (2.5-4.9)
[2024-11-17 08:47] LABS: BILIRUBIN,TOTAL 0.6 mg/dL (0.2-1); TOT PROT 6.7 g/dl (6.4-8.2)
[2024-11-17] MEDS ORDERED: metoPROLOL SUCCINATE 25 MG TAB.SR.24H (FP) PO SCH (10:00)
[2024-11-17] MEDS: ACETAMINOPHEN 1000 MG/100 ML BAG IVPB PRN (11:21)
[2024-11-17] MEDS ORDERED: AMPICILLIN NA/SULBACTAM NA 3 GM in SODIUM CHLORIDE 100 ML IVPB SCH (12:15)
[2024-11-17] MEDS: AMPICILLIN NA/SULBACTAM NA 3 GM in SODIUM CHLORIDE 100 ML IVPB SCH (13:45)
[2024-11-17] MEDS: METOPROLOL TARTRATE 5 MG/5 ML VIAL IVPUSH PRN (18:26)
[2024-11-18 08:12] LABS: BASO % 0.5 % (0-2.0); EOS % 2.2 % (0-4.5); HEMATOCRIT 50.2 % (35.4-49); HEMOGLOBIN 17.4 GM/dL (11.7-16.9); MCHC 34.8 g/dl (32.0-35.9); MEAN CELL VOLUME 89.2 fl (80-96); MEAN PLT VOLUME 7.3 fl (7.5-11.1); MONO % 8.5 % (3.8-10.2); NEUT % 68.8 % (42.8-82.8); PLATELET COUNT 307 10^3/uL (134-434); RBC 5.63 M/mm3 (4.00-5.60); RDW 13.6 % (11.9-15.9); WHITE BLOOD COUNT 10.8 K/mm3 (4.0-10.0)
[2024-11-18 08:27] LABS: POTASSIUM 4.5 mmol/L (3.5-5.1)
[2024-11-18 08:31] LABS: BLOOD UREA NITROGEN 29.9 mg/dL (7-18); CALCIUM 9.6 mg/dL (8.5-10.1); MAGNESIUM 2.3 mg/dL (1.8-2.4)
[2024-11-18 08:34] LABS: CREATININE 1.3 mg/dL (0.55-1.3)
[2024-11-18 08:35] LABS: PHOSPHOROUS 3.8 mg/dL (2.5-4.9)
[2024-11-18] MEDS: metoPROLOL SUCCINATE 25 MG TAB.SR.24H (FP) PO SCH (10:01)
[2024-11-18] MEDS: PANTOPRAZOLE 40 MG TABLET PO SCH (15:42)
[2024-11-18] MEDS: ACETAMINOPHEN 1000 MG/100 ML BAG IVPB PRN (15:45)
[2024-11-19 06:54] VITALS: RESP 16
[2024-11-19 07:46] LABS: BASO % 0.6 % (0-2.0); EOS % 2.4 % (0-4.5); HEMATOCRIT 46.2 % (35.4-49); HEMOGLOBIN 15.7 GM/dL (11.7-16.9); LYMPH % 24.3 % (8-40); MCH 30.4 pg (25.7-33.7); MCHC 33.9 g/dl (32.0-35.9); MEAN CELL VOLUME 89.8 fl (80-96); MEAN PLT VOLUME 7.5 fl (7.5-11.1); MONO % 8.6 % (3.8-10.2); NEUT % 64.1 % (42.8-82.8); PLATELET COUNT 283 10^3/uL (134-434); RBC 5.15 M/mm3 (4.00-5.60); RDW 13.3 % (11.9-15.9)
[2024-11-19 08:03] LABS: POTASSIUM 4.2 mmol/L (3.5-5.1)
[2024-11-19 08:12] LABS: BILIRUBIN,TOTAL 0.6 mg/dL (0.2-1); BLOOD UREA NITROGEN 26.4 mg/dL (7-18); TOT PROT 5.8 g/dl (6.4-8.2)
[2024-11-19 08:13] LABS: CALCIUM 8.7 mg/dL (8.5-10.1); MAGNESIUM 2.1 mg/dL (1.8-2.4)
[2024-11-19 08:14] LABS: CREATININE 1.2 mg/dL (0.55-1.3)
[2024-11-19 08:16] LABS: PHOSPHOROUS 3.6 mg/dL (2.5-4.9)
[2024-11-19 14:34] VITALS: BP 123/78; PULSE 84; TEMP 97.9
== END 2024-11-19 15:05 | disposition short-term general hospital (02) | DRG 309 ==
LOC: JER 06:31 → JERBED 09:54 → OBSVTOIN 18:52 → J4S 20:11
PROVIDERS: ADMIT Internal Medicine; ATTEND Internal Medicine
DX: I48.0 Paroxysmal atrial fibrillation (principal); I50.32 Chronic diastolic (congestive) heart failure; I25.10 Atherosclerotic heart disease of native coronary artery without angina pectoris; E78.5 Hyperlipidemia, unspecified; K21.9 Gastro-esophageal reflux disease without esophagitis; I10 Essential (primary) hypertension; J01.90 Acute sinusitis, unspecified
CPT/HCPCS: 36415; 71046-TC-FY; 80048; 80053; 82962; 83690; 83735; 83880; 84100; 84484; 85025; 85027; 93005; 93010; 93306-TC; 97116-GP; 97161-GP; 99291; G0378; J0131

== ENCOUNTER 2025-02-17 15:13 | Emergency (ER) | payer OTHER, BC ==
[2025-02-17 15:27] VITALS: TEMP 97.8; BMI 26.1
[2025-02-17 16:42] LABS: ABSOLUTE IMMATURE GRANULOCYTES 0.06 x10^3/uL (0.0-0.031); BASOPHILS # 0.07 x10^3/uL (0.01-0.08); EOSINOPHIL % 1.7 % (0.8-7.0); EOSINOPHILS # 0.19 x10^3/uL (0.04-0.54); HEMATOCRIT 45.9 % (40.1-51.0); HEMOGLOBIN 15.9 g/dL (13.7-17.5); MCHC 34.6 g/dl (32.3-36.5); MEAN CELL VOLUME 90.2 fl (79.0-92.2); MEAN PLT VOLUME 9.2 fl (9.4-12.4); MONOCYTE # 0.99 x10^3/uL (0.30-0.82); MONOCYTE % 9.1 % (5.3-12.2); PLATELET COUNT 357 x10^3/uL (163-337); RDW 13.5 % (12.2-16.6)
[2025-02-17 16:50] LABS: INR 1.23 (0.83-1.09); PROTHROMBIN TIME (PATIENT) 13.5 SEC (9.7-13.0)
[2025-02-17 16:53] LABS: ACTIVATED PTT 34.1 SECONDS (25.2-36.5)
[2025-02-17 17:38] LABS: POTASSIUM 4.6 mmol/L (3.5-5.1)
[2025-02-17 17:41] LABS: ALBUMIN 3.6 g/dl (3.4-5.0); BLOOD UREA NITROGEN 24.1 mg/dL (7-18); CALCIUM 9.6 mg/dL (8.5-10.1); MAGNESIUM 2.2 mg/dL (1.8-2.4)
[2025-02-17 17:44] LABS: CREATININE 1.1 mg/dL (0.55-1.3)
[2025-02-17 17:46] LABS: BILIRUBIN,TOTAL 0.3 mg/dL (0.2-1); TOT PROT 6.5 g/dl (6.4-8.2)
[2025-02-17] MEDS ORDERED: PROPOFOL 20 ML ONE (17:52)
[2025-02-17] MEDS ORDERED: ONDANSETRON 4 MG/2 ML VIAL ONE (17:52)
[2025-02-17] MEDS ORDERED: fentaNYL CITRATE 250 MCG/5 ML VIAL ONE (17:53)
[2025-02-17] MEDS: ONDANSETRON 4 MG/2 ML VIAL IVPUSH ONE (18:08)
[2025-02-17] MEDS: PROPOFOL 200 MG/20 ML VIAL IVPUSH ONE (18:18)
[2025-02-17] MEDS ORDERED: APIXABAN 5 MG TABLET ONE (19:11)
[2025-02-17 19:16] VITALS: RESP 16
[2025-02-17] MEDS: APIXABAN 5 MG TABLET PO ONE (19:18)
[2025-02-17 19:42] VITALS: BP 104/62; PULSE 67
== END 2025-02-17 19:42 | disposition home or self-care (01) ==
LOC: JER 15:13
PROC: 5A2204Z Restoration of Cardiac Rhythm, Single (ICD-10-PCS; principal; 2025-02-17)
PROC: 3E033NZ Introduction of Analgesics, Hypnotics, Sedatives into Peripheral Vein, Percutaneous Approach (ICD-10-PCS; 2025-02-17)
PROC: 3E033GC Introduction of Other Therapeutic Substance into Peripheral Vein, Percutaneous Approach (ICD-10-PCS; 2025-02-17)
PROC: 3E033GC Introduction of Other Therapeutic Substance into Peripheral Vein, Percutaneous Approach (ICD-10-PCS; 2025-02-17)
DX: I48.91 Unspecified atrial fibrillation (principal); R00.2 Palpitations; M54.2 Cervicalgia; R68.84 Jaw pain
CPT/HCPCS: 36415; 71045-TC-FY; 80053; 83690; 83735; 84484; 85025; 85610; 85730; 86850; 86900; 86901; 93005; 93010; 99291

== ENCOUNTER 2025-04-29 01:13 | Emergency (ER) | payer OTHER, BC ==
[2025-04-29 01:22] VITALS: BP 158/61; PULSE 58; RESP 18; TEMP 98.1; BMI 26.4
[2025-04-29 03:36] LABS: MCHC 33.8 g/dl (32.3-36.5); MEAN CELL VOLUME 89.3 fl (79.0-92.2); MEAN PLT VOLUME 9.4 fl (9.4-12.4); RDW 12.8 % (12.2-16.6)
[2025-04-29 04:49] LABS: HCV DIAGNOSTIC IN-HOUSE W/RFLX NON-REACTIVE (NONREACTIVE); HIV INTERPRETATION NEGATIVE (NEGATIVE)
== END 2025-04-29 04:30 | disposition home or self-care (01) ==
LOC: JER 01:13
DX: K64.8 Other hemorrhoids (principal)
CPT/HCPCS: 36415; 85027; 86803; 87389; 99283-25